=== PATIENT | female | born 1945 | race Caucasian/White ===

== ENCOUNTER → 2016-04-18 | Outpatient (CLI) | payer OTHER ==
--- NOTE | 2016-04-18 15:10 | DIAGNOSTIC IMAGING REPORT ---
MRI OF THE LUMBAR SPINE WITHOUT CONTRAST CLINICAL HISTORY: Pain. Evaluate for spinal stenosis. COMPARISON STUDY: No previous studies for comparison. TECHNIQUE: Utilizing a 1.5 Catherine magnet and dedicated coil, multiplanar, multiecho imaging of the lumbar spine was performed without IV contrast. FINDINGS: For purposes of numbering on this exam, the L5-S1 disc space is assigned to axial image 28 of 30. There is slight anterolisthesis of L5 on S1. There are equivocal bilateral L5 pars defects. Note is made of moderate loss of height of the L1 vertebral body with associated marrow edema. There is 3 mm of retropulsion. There is no significant central canal stenosis. No additional compression fractures are present. No intracanalicular mass or fluid collection is present. The conus terminates at the L1-L2 level. There are several suspected right renal cysts which are suboptimally assessed on this unenhanced examination. L1-2: The central canal and neural foramen are patent. L2-3: The central canal and neural foramen are patent. L3-4: The central canal and neural foramen are patent L4-5: There is facet arthrosis. The central canal and neural foramen are patent. L5-S1: There is grade I anterolisthesis. There is facet arthrosis. The central canal and neural foramen are patent. IMPRESSION: 1. L1 compression fracture with 50% loss of vertebral body height and minimal retropulsion. This fracture is likely acute to subacute. No central canal stenosis. No additional lumbar spine compression fractures. 2. Mild multilevel degenerative changes of the lumbar spine. Patent central canal. 3. Slight anterolisthesis of L5 on S1 with equivocal bilateral L5 pars defects. Electronically signed by: Magan Augustin M.D. 04/18/2016 3:08 PM Dictated Date/Time: 04/18/2016 3:01 PM
== END ==
LOC: C.MRI 13:56
PROVIDERS: ATTEND Internal Medicine
DX: M48.06 Spinal stenosis, lumbar region (principal); M48.56XA Collapsed vertebra, not elsewhere classified, lumbar region, initial encounter for fracture; X58.XXXA Exposure to other specified factors, initial encounter